=== PATIENT | male | born 1990 | race Caucasian/White ===

== ENCOUNTER 2024-10-16 08:32 | Outpatient (AMB) | payer OTHER, SELFPAY ==
--- NOTE | 2024-10-16 08:52 | MHC.OFFVIS ---
Vital Signs 10/16/24 08:55 Height 6 ft 4 in Weight 460 lb BMI 56.0 Intake Visit Reasons: Right knee pain Intake Note: Suhail is a 34 year old male who presents with complaints of progressively worsening right knee pain. The patient describes his pain as sharp in nature. His pain began approximately 6 months ago. He has failed the last 3 months of conservative treatment which has included physical therapy exercises, a cortisone injection, topical creams, Tylenol and anti-inflammatory medicines. The patient did have a cortisone injection given into his right knee in July of 2024 by his primary care doctor. He got minimal relief from the injection. He denies any locking or giving way. He continues to work doing [employer]. At this point his right knee pain is interfering with his activities of daily living and his ability to sleep well through the night. He wishes to hold off on surgery if at all possible. Allergies No Known Allergies Allergy (Verified 10/16/24 08:55) Medication List - Last Reconciled 10/16/24 by Allen Rudd MD allopurinol mg PO DAILY losartan mg PO DAILY omeprazole mg PO DAILY tirzepatide (weight loss) (Zepbound) mg subcut [facility] Social History (Updated 10/16/24 @ 08:55 by MAGDY Issa) Current occupational status: employed Current occupation: rt hand, [employer] Physical Exam Vital Signs: BMI result Body Mass Index 56.0 Const Other: Well-nourished well-developed very friendly male awake alert and oriented x3 in no acute distress Extrem Other: Bilateral lower extremity examination shows good capillary refill, no skin lesions noted, normal sensation light touch Right knee examination shows a minimal effusion, palpable crepitus with range of motion, pain with range of motion, no instability Assessment & Plan Assessment & Plan (1) Right knee pain: Code(s): M25.561 - Pain in right knee (2) Osteoarthritis of right knee: Code(s): M17.11 - Unilateral primary osteoarthritis, right knee Category: Medical Plan Mr. Lerner presents with right knee pain due to osteoarthritis. I had a lengthy discussion with the patient regarding the treatment options. He wishes to hold off on surgery for as long as possible. I agree with this plan. He has not gotten good relief from cortisone injection therapy. Thus, I will see whether or not his insurance company will cover a viscosupplementation injection such as Durolane. I will see him back once the injection is available. Feel free to call me at any time should questions regarding his orthopedic management arise. Thank you very much for asking me to see this very friendly gentleman. I spent 21 minutes in reviewing the patient's records and imaging studies, seeing the patient and documenting in the medical record. Coding Level of Care Code New Pt Level 3 (05392) Complex EM visit Add On G2211 Diagnoses Right knee pain M25.561 Osteoarthritis of right knee M17.11
[2024-10-16 08:55] VITALS: BMI 56.0
== END 2024-10-16 09:10 | disposition home or self-care (01) ==
PROVIDERS: PCP Internal Medicine; Visit Provider Orthopaedic Surgery
DX: M17.11 Unilateral primary osteoarthritis, right knee (principal)
CPT/HCPCS: 99203; G2211

== ENCOUNTER → 2024-10-16 08:32 | Outpatient (BNVA) | payer OTHER, SELFPAY | PROVIDERS: PCP Internal Medicine; Visit Provider Orthopaedic Surgery | DX: M17.11 Unilateral primary osteoarthritis, right knee (principal) | CPT/HCPCS: 99202 ==

== ENCOUNTER 2024-11-14 07:39 | Outpatient (AMB) | payer OTHER, SELFPAY ==
--- NOTE | 2024-11-14 07:41 | MHC.OFFVIS ---
Vital Signs 11/14/24 07:48 Height 6 ft 4 in Weight 460 lb BMI 56.0 Intake Visit Reasons: Inj-Right knee Euflexxa #1 Intake Note: Suhail is a 34 year old male who presents with complaints of progressively worsening right knee pain. The patient describes his pain as sharp in nature. His pain began approximately 6 months ago. He has failed the last 3 months of conservative treatment which has included physical therapy exercises, a cortisone injection, topical creams, Tylenol and anti-inflammatory medicines. The patient did have a cortisone injection given into his right knee in July of 2024 by his primary care doctor. He got minimal relief from the injection. He denies any locking or giving way. He continues to work doing [employer]. At this point his right knee pain is interfering with his activities of daily living and his ability to sleep well through the night. He wishes to hold off on surgery if at all possible. Allergies No Known Allergies Allergy (Verified 11/14/24 07:49) Medication List - Last Reconciled 11/15/24 by Allen Rudd MD allopurinol mg PO DAILY losartan mg PO DAILY omeprazole mg PO DAILY tirzepatide (weight loss) (Zepbound) mg subcut [facility] Social History (Updated 10/16/24 @ 08:55 by MAGDY Issa) Current occupational status: employed Current occupation: rt hand, [employer] Physical Exam Vital Signs: BMI result Body Mass Index 56.0 Const Other: Well-nourished well-developed very friendly male awake alert and oriented x3 in no acute distress Extrem Other: Right knee examination shows a minimal effusion, palpable crepitus with range of motion, pain with range of motion, no instability Office Procedures AMB Joint Injection/Aspiration Joint Injection/Aspiration Primary Site: right knee Prep: site was prepped using aseptic technique Injected: 20 mg of (Euflexxa viscosupplementation) and 1% plain lidocaine Procedure: The patient tolerated the procedure well Coding 85914 - Large joint Procedure code (CPT) selection complete Results Reviewed Results Reviewed: X-rays of the patient's right knee taken previously show joint space narrowing, subchondral sclerosis, no acute bony abnormalities Assessment & Plan Assessment & Plan (1) Osteoarthritis of right knee: Code(s): M17.11 - Unilateral primary osteoarthritis, right knee Category: Medical Plan Mr. Lerner presents with right knee pain due to osteoarthritis. The risks and benefits of a series of Euflexxa viscosupplementation injections were discussed at length with the patient. The patient wishes to proceed. He tolerated the 1st injection well. He will follow up next week as scheduled. Feel free to call me at any time should questions regarding his orthopedic management arise. I spent 20 minutes in reviewing the patient's records and imaging studies, seeing the patient and documenting in the medical record. Orders: Orders AMB Joint Injection/Aspiration 11/14/24 M17.11 - Unilateral primary osteoarthritis, right knee Coding Level of Care Code Est Pt Level 3 (94654) Complex EM visit Add On G2211 Diagnoses Osteoarthritis of right knee M17.11 CPT Codes Coding - 33429 Large joint: 53264 - Large joint ([id number])
[2024-11-14 07:48] VITALS: BMI 56.0
== END 2024-11-14 07:55 | disposition home or self-care (01) ==
LOC: HO.HOS 07:40
PROVIDERS: PCP Internal Medicine; Visit Provider Orthopaedic Surgery
DX: M17.11 Unilateral primary osteoarthritis, right knee (principal)
CPT/HCPCS: 20610; 99213

== ENCOUNTER → 2024-11-14 07:39 | Outpatient (BNVA) | payer OTHER, SELFPAY | PROVIDERS: PCP Internal Medicine; Visit Provider Orthopaedic Surgery | DX: M17.11 Unilateral primary osteoarthritis, right knee (principal) | CPT/HCPCS: 20610; 99212; J2003; J7323 ==

== ENCOUNTER 2024-11-20 07:30 | Outpatient (AMB) | payer OTHER, SELFPAY ==
--- OUTSIDE RECORDS SUMMARY | 2024-11-20 07:33 | XMS_ITS | Clinical Summary ---
Author Organization [facility] Address [address] [place] [address] Phone Care Team Providers Care Facility Service Associate Name Role Phone Harsh Sharp MD Primary Care Provider Allergies No known active allergies Social History Tobacco Use Types Packs/Day Years Used Date Smoking Tobacco: Never Assessed Education Answer Date Recorded Are you interested in more education? Not on olegario e 12/23/2022 Are you concerned about learning? Not on file 12/23/2022 No 12/23/2022 No 12/23/2022 Digital Access Answer Date Recorded No 01/18/2023 No 01/18/2023 Reliable internet access at home? Not on file 01/18/2023 Device with a working camera? Not on file Intimate Partner Violence Answer Date R ecorded Are you denied basic needs s uch as food, clothing, or medical care? No 12/23/2022 In the past 12 months have y ou been in a relationship with a person who hurts, threatens, or tries to control you? No 12/23/2022 Are you denied basic needs s uch as food, clothing, or medical care? No 12/23/2022 In the past 12 months have y ou been in a relationship with a person who hurts, threatens, or tries to control you? No 12/23/2022 Sex and Gender Information Value Date Recorded Sex Assigned at Not on file Gender Identity Not on file Sexual Orientation Not on file Last Filed Vital Signs Vital Sign Reading Time Taken Comments Blood Pressure 135/67 12/23/2022 5:54 PM EDT Pulse 70 12/23/2022 5:54 PM EDT Temperature 36.6 ??C (97.9 ??F) 12/23/2022 5:54 PM ED T Respiratory Rate 16 12/23/2022 6:26 PM EDT Oxygen Saturation 97% 12/23/2022 5:54 PM EDT Inhaled Oxygen Concentration - - Weight 213.2 kg (470 lb) 12/23/2022 1:04 PM EDT Height 193 cm (6' 4 ) 12/23/2022 1:04 PM EDT Body Mass Index 57.21 12/23/2022 1:04 PM EDT Plan of Treatment Health Maintenance Due Date Last Done Comments LIPID PANEL 1988 DEPRESSION SCREENING 2000 SMOKING Hx and SMOKELESS TOBACCO SCREENING 2001 HEPATITIS C SCREENING 2006 HIV ONE-TIME SCREENING (18-6 5 YEARS) 2006 INFLUENZA VACCINE (#1) 2024 4, 06/21/2013 COVID-19 VACCINE ( - 2023-2 5 season) 2024 SCREENING FOR DIABETES 12/23/2025 12/23/2022 Adult Td,Tdap Booster 01/01/2028 12/31/2017 PNEUMOCOCCAL VACCINES (0-49 years) Aged Out 11/07/2013 No longer eligible b ased on patient's age to complete this topic HEPATITIS A VACCINES Aged Out No long er eligible based on patient's age to complete this topic HIB VACCINES Aged Out No longer eligi ble based on patient's age to complete this topic MENINGOCOCCAL VACCINES (ACWY) Aged Out No longer eligible based on patient's age to complete this topic Medical Devices Not on file Care Teams Facility Service Associate Relationship Specialty Start Date End Date Harsh Sharp MD [address] [place] [address] PCP - General 12/23/22 Additional Source Comments The information contained in this document represents components of the legal health record. It is not the complete legal health record.[facility]
--- OUTSIDE RECORDS SUMMARY | 2024-11-20 07:33 | XMS_ITS | Clinical Summary ---
Author Organization [facility] Address [address] [place] [address] Phone Care Team Providers Care Special Effects Technician Name Role Phone Deshawn Jones MD Primary Care Provider [phone] Encounters Date Type Department Care Team Description 11/06/2024 6:19 PM EDT - 11/06/2024 11:59 PM EDT Hospital Encounter [facility] MRI [address] [place] [address] Radiculopathy, lumbar region Discharge Disposition: Home or Self Care from Last 3 Months Surgical History Surgery Date Site/Laterality Comments OTHER SURGICAL HISTORY PROCEDURE: MD ENDOLYMPHATIC SAC W/O SHUNT Family History Medical History Relation Name Comments Other: gallbladder Mother mother, s ister, grandparents GB removed Relation Name Status Comments Father Alive HTN Mother Alive ASTHMA Sister 1 Alive Sister 2 Alive Social History Tobacco Use Types Packs/Day Years Used Date Smoking Tobacco: Some Days Cigarettes Last attempted to quit: 08/22/2010 Smokeless Tobacco: Never Alcohol Use Standard Drinks/Week Comments Yes 0 (1 standard drink = 0.6 oz pur e alcohol) Sex and Gender Information Value Date Recorded Sex Assigned at Not on file Legal Sex Male 5:00 PM EST Gender Identity Not on file Sexual Orientation Not on file Obstetrics History Plan of Treatment Health Maintenance Due Date Last Done Comments Hepatitis B Vaccines (1 of 3 - 19+ 3-dose series) 2007 Pneumococcal Vaccine: Pediatrics (0 to 5 Years) and At-Risk Patients (6 to 64 Years) (2 of 2 - PCV) 11/07/2014 11/07/2013 COVID-19 Vaccine ( - 2023-2 5 season) 2024 Influenza Vaccine (#1) 2024 4, 06/21/2013 Cholesterol Screening (Lipid Panel) 11/05/2024 Depression Screening 11/05/2024 HIV Screening 11/05/2024 Hepatitis C Screening 11/05/2024 Social Influencers of Health Screening 11/05/2024 DTaP,Tdap,and Td Vaccines (2 - Td or Tdap) 01/01/2028 12/31/2017 HIB Vaccines Aged Out No longer eligi ble based on patient's age to complete this topic HPV Vaccines Aged Out No longer eligi ble based on patient's age to complete this topic Hepatitis A Vaccines Aged Out No long er eligible based on patient's age to complete this topic IPV Vaccines Aged Out No longer eligi ble based on patient's age to complete this topic MMR Vaccines Aged Out No longer eligi ble based on patient's age to complete this topic Meningococcal ACWY Vaccine Aged Out N o longer eligible based on patient's age to complete this topic Meningococcal B Vacine Aged Out No lo nger eligible based on patient's age to complete this topic RSV Immunization Patients Under 20 months Aged Out No longer eligible b ased on patient's age to complete this topic Varicella Vaccines Aged Out No longer eligible based on patient's age to complete this topic Procedures Procedure Name Priority Date/Time Associated Diagnosis Comments MR LUMBAR SPINE WO CONTRAST Routine 11/06/2024 7:01 PM EDT Radiculopathy, lumbar region from Last 3 Months Results * MR Lumbar Spine wo Contrast (11/06/2024 7:01 PM EDT) Anatomical Region Laterality Modality L-spine, Spine Magnetic Resonan ce 11/06/2024 11:3 6 PM EDT Impressions 11/07/2024 8:46 AM EDT Degenerative changes of the lumbar spine as detailed above. -------- FINAL REPORT -------- Dictated By: David Martins Dictated Date: 11/06/2024 23:36 ET Assigned Physician: David Martins Reviewed and Electronically Signed By: David Martins Signed Date: 11/07/2024 08:46 ET Workstation ID: [id number] Transcribed By: Self Edit Transcribed Date: 11/06/2024 23:36 ET Narrative 11/07/2024 8:46 AM EDT PROCEDURE: MRI of the lumbar spine without contrast. TECHNIQUE: Multiplanar multisequence MRI of the lumbar spine without intravenous contrast administration. HISTORY: LUMBAR RADICULOPATHY COMPARISON: CT abdomen and pelvis 06/09/2020. FINDINGS: The paraspinous soft tissues are normal. Normal alignment. ??Small hemangioma in the anterior S1 vertebral body. ??No concerning marrow infiltrative lesion. ??No marrow edema. Normal position of the conus at T12-L1. There is a small broad-based left central protrusion at T12-L1 without mass effect upon the conus. Lumbar disc levels: L1-2: Moderate disc space height loss. ??Small broad-based right central protrusion. ??No spinal or foraminal stenosis. L2-3: No significant disc or facet abnormality. ??No spinal or foraminal stenosis. L3-4: Small symmetric disc bulge with minimal endplate osteophytes. ??Mild bilateral foraminal stenosis. ??Mild degenerative irregularity of the facet joints. ??No spinal stenosis. L4-5: Small symmetric disc osteophyte complex. ??Mild degenerative irregularity of the left facet joint. ??Minimal bilateral foraminal stenosis. ??No spinal stenosis. L5-S1: Minimal degenerative irregularity of the facet joints. ??Small right central focal protrusion which contacts the right S1 nerve in the lateral recess but does not cause impingement. ??Slight widening of the facet joints suggesting mild hypermobility. ??No significant spinal or foraminal stenosis. Procedure Note David Martins MD - 11/07/2024 PROCEDURE: MRI of the lumbar spine without contrast. TECHNIQUE: Multiplanar multisequence MRI of the lumbar spine withoutintravenous contrast administration. HISTORY: LUMBAR RADICULOPATHY COMPARISON: CT abdomen and pelvis 06/09/2020. FINDINGS: The paraspinous soft tissues are normal. Normal alignment. Small hemangioma in the anterior S1 vertebral body. Noconcerning marrow infiltrative lesion. No marrow edema. Normal position of the conus at T12-L1. There is a small broad-based left central protrusion at T12-L1 withoutmass effect upon the conus. Lumbar disc levels: L1-2: Moderate disc space height loss. Small broad-based right centralprotrusion. No spinal or foraminal stenosis. L2-3: No significant disc or facet abnormality. No spinal or foraminalstenosis. L3-4: Small symmetric disc bulge with minimal endplate osteophytes. Mildbilateral foraminal stenosis. Mild degenerative irregularity of the facetjoints. No spinal stenosis. L4-5: Small symmetric disc osteophyte complex. Mild degenerativeirregularity of the left facet joint. Minimal bilateral foraminalstenosis. No spinal stenosis. L5-S1: Minimal degenerative irregularity of the facet joints. Small rightcentral focal protrusion which contacts the right S1 nerve in the lateralrecess but does not cause impingement. Slight widening of the facetjoints suggesting mild hypermobility. No significant spinal or foraminalstenosis. IMPRESSION: Degenerative changes of the lumbar spine as detailed above. -------- FINAL REPORT -------- Dictated By: David Martins Dictated Date: 11/06/2024 23:36 ET Assigned Physician: David Martins Reviewed and Electronically Signed By: David Martins Signed Date: 11/07/2024 08:46 ET Workstation ID: [id number] Transcribed By: Self Edit Transcribed Date: 11/06/2024 23:36 ET us Harsh Domínguez MD IMG MRI PROCEDURES Final Resul t from Last 3 Months Care Teams Special Effects Technician Relationship Specialty Start Date End Date Deshawn Jones MD PCP - General 04/15/08
--- OUTSIDE RECORDS SUMMARY | 2024-11-20 07:33 | XMS_ITS | Encounter Summary ---
Author Organization [facility] Address [address] [place] [address] Phone Care Team Providers Care Hand Packer/Packager Name Role Phone Harsh Sharp MD Primary Care Provider Encounter Details Date Type Department Care Team ([facility] st Contact Info) Description 12/23/2022 Procedure Pass [facility], Ct Scan - [address] [address] Social History Tobacco Use Types Packs/Day Years Used Date Smoking Tobacco: Never Assessed Education Answer Date Recorded Are you interested in more education? Not on olegario e 12/23/2022 Are you concerned about learning? Not on file 12/23/2022 No 12/23/2022 No 12/23/2022 Intimate Partner Violence Answer Date R ecorded [...] on file Sexual Orientation Not on file documented as of this encounter Plan of Treatment Not on file documented as of this encounter Visit Diagnoses Not on filedocumented in this encounter Care Teams Hand Packer/Packager Relationship Specialty Start Date End Date Harsh Sharp MD [address] [address] PCP - General 12/23/22 documented as of this encounter Additional Source Comments The information contained in this document represents components of the legal health record. It is not the complete legal health record.[facility]
--- NOTE | 2024-11-20 07:43 | A.OFFVIS_ITS ---
Vital Signs 11/20/24 07:44 Height 64 ft Weight 460 lb BMI 0.5 Intake Visit Reasons: Inj-Right knee Euflexxa #2 Intake Note: Suhail is a 34 year old male who presents today for a second dose of Euflexxa gel injection on the right knee. He states that he has gotten mild relief from the 1st injection. He denies any fevers or chills. Allergies No Known Allergies Allergy (Verified 11/20/24 07:49) Medication List - Last Reconciled 11/20/24 by Allen Rudd MD allopurinol mg PO DAILY losartan mg PO DAILY omeprazole mg PO DAILY tirzepatide (weight loss) (Zepbound) mg subcut [facility] Social History (Updated 10/16/24 @ 08:55 by MAGDY Issa) Current occupational status: employed Current occupation: rt hand, [employer] Physical Exam Vital Signs: BMI result Body Mass Index 0.5 Extrem Other: Right knee examination shows a minimal effusion, palpable crepitus with range of motion, pain with range of motion, no instability Office Procedures AMB Joint Injection/Aspiration Joint Injection/Aspiration Primary Site: right knee Prep: site was prepped using aseptic technique Injected: 20 mg of (Euflexxa viscosupplementation) and 1% plain lidocaine Procedure: The patient tolerated the procedure well Coding - Large joint Procedure code (CPT) selection complete Results Reviewed Results Reviewed: X-rays of the patient's right knee show joint space narrowing, subchondral sclerosis, no acute bony abnormalities Assessment & Plan Assessment & Plan (1) Osteoarthritis of right knee: Code(s): M17.11 - Unilateral primary osteoarthritis, right knee Category: Medical Plan Mr. Lerner presents with right knee pain due to osteoarthritis. The risks and benefits of a 2nd Euflexxa viscosupplementation injection were discussed at length with the patient. The patient wished to proceed. He tolerated the injection well. He will continue with his home exercise program. He will follow up as scheduled next week. Feel free to call me at any time should questions regarding his orthopedic management arise. Orders: Orders AMB Joint Injection/Aspiration Today M17.11 - Unilateral primary osteoarthritis, right knee Coding Level of Care Code Procedure Only Diagnoses Osteoarthritis of right knee M17.11 CPT Codes Coding - 37246 Large joint: 53409 - Large joint ([id number])
== END 2024-11-20 08:01 | disposition home or self-care (01) ==
LOC: HO.HOS 07:31
PROVIDERS: PCP Internal Medicine; Visit Provider Orthopaedic Surgery
DX: M17.11 Unilateral primary osteoarthritis, right knee (principal)
CPT/HCPCS: 20610

== ENCOUNTER → 2024-11-20 07:30 | Outpatient (BNVA) | payer OTHER, SELFPAY | PROVIDERS: PCP Internal Medicine; Visit Provider Orthopaedic Surgery | DX: M17.11 Unilateral primary osteoarthritis, right knee (principal) | CPT/HCPCS: 20610; J2003; J7323 ==

== ENCOUNTER 2024-11-27 07:51 | Outpatient (AMB) | payer OTHER, SELFPAY ==
--- OUTSIDE RECORDS SUMMARY | 2024-11-27 07:55 | XMS_ITS | Clinical Summary ---
Author Organization [facility] Address [address] [place] [address] Phone Care Team Providers Care Director Of Sales Marketing Name Role Phone Harsh Sharp MD Primary [...] Medical Devices Not on file Care Teams Director Of Sales Marketing Relationship Specialty Start Date End Date Harsh Sharp MD [address] [place] [address] PCP - General 12/23/22 Additional Source Comments The information contained in this document represents components of the legal health record. It is not the complete legal health record.[facility]
--- OUTSIDE RECORDS SUMMARY | 2024-11-27 07:55 | XMS_ITS | Encounter Summary ---
Author Organization [facility] Address [address] [facility] [address] [place] [address] Phone Care Team Providers Care Car Spotter Name Role Phone Harsh Sharp MD Primary Care Provider Encounter Details Date Type Department Care Team ([facility] st Contact Info) Description 12/23/2022 Procedure Pass [facility], Ct Scan - [address] [address] Social History Tobacco Use Types Packs/Day Years [...] on filedocumented in this encounter Care Teams Car Spotter Relationship Specialty Start Date End Date Harsh Sharp MD [address] [address] PCP - General 12/23/22 documented as of this encounter Additional Source Comments The information contained in this document represents components of the legal health record. It is not the complete legal health record.[facility]
--- OUTSIDE RECORDS SUMMARY | 2024-11-27 07:55 | XMS_ITS | Encounter Summary ---
Author Organization [facility] Address [address] [facility] [address] [place] [address] Phone Care Team Providers Care Head Waiter Name Role Phone Harsh Sharp MD Primary Care Provider Encounter Details Date Type Department Care Team ([facility] st Contact Info) Description 12/23/2022 Procedure Pass [facility], Ct Scan - [address] [address] Social History Tobacco Use Types Packs/Day Years [...] on filedocumented in this encounter Care Teams Head Waiter Relationship Specialty Start Date End Date Harsh Sharp MD [address] [address] PCP - General 12/23/22 documented as of this encounter Additional Source Comments The information contained in this document represents components of the legal health record. It is not the complete legal health record.[facility]
--- OUTSIDE RECORDS SUMMARY | 2024-11-27 07:56 | XMS_ITS | Clinical Summary ---
Author Organization [facility] Address [address] [place] [address] Phone Care Team Providers Care Spray Painting Machine Operator Name Role Phone Deshawn Jones MD Primary Care Provider [phone] Encounters Date Type Department Care Team Description 11/06/2024 6:19 PM EDT - 11/06/2024 11:59 PM EDT Hospital Encounter [facility] MRI [address] [place] [address] Radiculopathy, lumbar region Discharge Disposition: Home or Self Care from Last 3 Months Surgical History Surgery Date Site/Laterality Comments OTHER SURGICAL HISTORY PROCEDURE: [place] ENDOLYMPHATIC SAC W/O SHUNT Family History Medical [...] age to complete this topic Meningococcal B Vaccine Aged Out No l onger eligible based on patient's age to complete [...] Signed Date: 11/07/2024 08:46 ET Workstation ID: [id number] Transcribed By: Self Edit Transcribed Date: 11/06/2024 [...] Signed Date: 11/07/2024 08:46 ET Workstation ID: [id number] Transcribed By: Self Edit Transcribed Date: 11/06/2024 23:36 ET us Harsh Domínguez MD IMG MRI PROCEDURES Final Resul t from Last 3 Months Care Teams Spray Painting Machine Operator Relationship Specialty Start Date End Date Deshawn Jones MD PCP - General 04/15/08
[2024-11-27 08:00] VITALS: BMI 56.0
--- NOTE | 2024-11-27 08:00 | MHC.OFFVIS ---
Vital Signs 11/27/24 08:00 Height 6 ft 4 in Weight 460 lb BMI 56.0 Intake Visit Reasons: Inj-Right knee Euflexxa #3 Intake Note: Suhail is a 34 year old male who presents today for a third dose of Euflexxa gel injection on the right knee. Patient states that he has gotten - relief from the second dose. Allergies No Known Allergies Allergy (Verified 11/27/24 08:00) Medication List - Last Reconciled 11/27/24 by Allen Rudd MD allopurinol mg PO DAILY losartan mg PO DAILY omeprazole mg PO DAILY tirzepatide (weight loss) (Zepbound) mg subcut PFSH Social History (Updated 10/16/24 @ 08:55 by MAGDY Issa) Current occupational status: employed Current occupation: rt hand, HVAC Assessment & Plan Assessment & Plan Orders: Orders AMB Joint Injection/Aspiration Today M17.11 - Unilateral primary osteoarthritis, right knee Coding
--- NOTE | 2024-11-27 08:04 | MHC.OFFVIS ---
Vital Signs 11/27/24 08:00 Height 6 ft 4 in Weight 460 lb BMI 56.0 Intake Visit Reasons: Inj-Right knee Euflexxa #3 Intake Note: Suhail presents with complaints of intermittent right knee pain. He states that he has gotten mild relief from the 1st 2 Euflexxa injections. He continues with his home exercise program in his weight loss program. Allergies No Known Allergies Allergy (Verified 11/27/24 08:00) Medication List - Last Reconciled 11/27/24 by Allen Rudd MD allopurinol mg PO DAILY losartan mg PO DAILY omeprazole mg PO DAILY tirzepatide (weight loss) (Zepbound) mg subcut PFSH Social History (Updated 10/16/24 @ 08:55 by MAGDY Issa) Current occupational status: employed Current occupation: rt hand, HVAC Physical Exam Vital Signs: BMI result Body Mass Index 56.0 Extrem Other: Right knee examination shows a minimal effusion, mild crepitus with range of motion, no instability Office Procedures AMB Joint Injection/Aspiration Joint Injection/Aspiration Primary Site: right knee Prep: site was prepped using aseptic technique Injected: 20 mg of (Euflexxa viscosupplementation) and 1% plain lidocaine Procedure: The patient tolerated the procedure well Coding - Large joint Procedure code (CPT) selection complete Results Reviewed Results Reviewed: X-rays of the patient's right knee taken previously show joint space narrowing, subchondral sclerosis, no acute bony abnormalities Assessment & Plan Assessment & Plan (1) Osteoarthritis of right knee: Code(s): M17.11 - Unilateral primary osteoarthritis, right knee Category: Medical Plan Suhail presents with right knee pain due to osteoarthritis. The risks and benefits of a 3rd Euflexxa injection were discussed at length with the patient. The patient wished to proceed. He tolerated the injection well. He will continue with his home exercise program. Will follow up with me on an as-needed basis should his symptoms not plateau at an unacceptable level over the next few months. Feel free to call me at any time should questions regarding his orthopedic management arise. Orders: Orders AMB Joint Injection/Aspiration Today M17.11 - Unilateral primary osteoarthritis, right knee Coding Level of Care Code Procedure Only Diagnoses Osteoarthritis of right knee M17.11 CPT Codes Coding - 02738 Large joint: 04754 - Large joint ([id number])
== END 2024-11-27 08:05 | disposition home or self-care (01) ==
LOC: HO.HOS 07:51
PROVIDERS: PCP Internal Medicine; Visit Provider Orthopaedic Surgery
DX: M17.11 Unilateral primary osteoarthritis, right knee (principal)
CPT/HCPCS: 20610

== ENCOUNTER → 2024-11-27 07:51 | Outpatient (BNVA) | payer OTHER, SELFPAY | PROVIDERS: PCP Internal Medicine; Visit Provider Orthopaedic Surgery | DX: M17.11 Unilateral primary osteoarthritis, right knee (principal) | CPT/HCPCS: 20610; J2003; J7323 ==

== ENCOUNTER 2024-12-29 07:04 | Outpatient (REF) | payer OTHER, SELFPAY ==
--- NOTE | ~2024-12-29 | XR_ITS ---
EXAMINATION: XR KNEE, RIGHT CLINICAL INFORMATION: RIGHT MEDIAL KNEE PAIN COMPARISON: None available. TECHNIQUE: Four views of the right knee. FINDINGS: No fracture, dislocation, or suspicious bone lesion. There is normal bony mineralization. There is normal alignment. Moderate medial and patellofemoral compartment osteoarthrosis with marginal osteophytic spurring and mild to moderate joint space narrowing. There is relative preservation of the lateral compartment. No significant patellar tilt. There are prominent marginal patellar, femoral trochlear, and medially projecting osteophytes. There is superior patellar enthesopathy. There is a moderate sized suprapatellar joint effusion. The soft tissues appear normal. XR/XR knee RT 3V IMPRESSION: 1. No acute bony abnormalities. 2. Moderate osteoarthrosis in the medial and patellofemoral compartments. 3. Moderate size joint effusion. Electronically signed by: Ernesto Root MD 12/31/2024 08:11 AM EDT
== END 2024-12-29 07:05 | disposition home or self-care (01) ==
LOC: HO.XRAY 07:04
PROVIDERS: PCP Internal Medicine; Visit Provider Internal Medicine
DX: M25.561 Pain in right knee (principal)
CPT/HCPCS: 73562

== ENCOUNTER → 2024-12-29 07:20 | Outpatient (BNV) | payer OTHER, SELFPAY | PROVIDERS: Visit Provider Radiology Diagnostic Radiology | DX: M17.11 Unilateral primary osteoarthritis, right knee (principal); M25.461 Effusion, right knee | CPT/HCPCS: 73562 ==

== ENCOUNTER → 2025-01-05 19:13 | Outpatient (BNV) | payer OTHER, SELFPAY | PROVIDERS: PCP Internal Medicine; Visit Provider Radiology Diagnostic Radiology | DX: M17.11 Unilateral primary osteoarthritis, right knee (principal) | CPT/HCPCS: 73721 ==

== ENCOUNTER 2025-01-05 19:14 | Outpatient (REF) | payer OTHER, SELFPAY ==
--- NOTE | ~2025-01-05 | MR_ITS ---
CLINICAL HISTORY: S83.241A - Other tear of medial meniscus, current injury, right knee, in... MR right knee without gadolinium Comparison: None Findings: No acute fracture. There is kissing edema at the medial most margin of the weight-bearing medial femoral condyle and medial tibial plateau. There are marginal osteophytes involving all 3 joint compartments. Moderate-sized simple joint effusion. Cruciate and collateral ligaments are intact. Patellar retinacula and iliotibial band are intact. No tears of the quadriceps, patellar, popliteus, or flexor tendons. Lateral meniscus is normal. There is partial extrusion of the medial meniscus with some increased degenerative signal within the midbody. In the patellofemoral compartment there is areas of partial-thickness and full-thickness fissuring of the cartilage at the patellar apex, as well as areas of partial-thickness loss of the femoral trochlea articular cartilage. Lateral joint compartment articular cartilage is intact with only a small area of increased signal within the femoral weight-bearing articular cartilage. Medial joint compartment demonstrates a area of the weight-bearing left femoral condyle with full-thickness loss measuring 7 mm in transverse dimensions, series 19, image 25. There are areas of increased signal within the medial tibial plateau articular cartilage. IMPRESSION: 1. Tricompartmental osteoarthritis most significantly involving the medial joint compartment, with focal area of full-thickness articular cartilage loss, kissing contusions of the weight-bearing femoral condyle and tibial plateau medially as well as partial extrusion of the medial meniscus. 2. Moderate-sized joint effusion. This document has been electronically signed by: Jose Wren MD on 01/05/2025 21:12:07
== END 2025-01-05 19:15 | disposition home or self-care (01) ==
LOC: HO.MRI 19:14
PROVIDERS: PCP Internal Medicine; Visit Provider Orthopaedic Surgery
DX: S83.241A Other tear of medial meniscus, current injury, right knee, initial encounter (principal)
CPT/HCPCS: 73721

== ENCOUNTER 2025-01-08 07:37 | Outpatient (AMB) | payer OTHER, SELFPAY ==
--- NOTE | 2025-01-08 07:38 | MHC.OFFVIS ---
Intake Visit Reasons: OV-RT knee MRI review Intake Note: Suhail is a 34 year old male who presents today for a Right Knee MRI review. He reports continued pain and ?popping? in his right knee. He continues with his weight loss program. He has lost approximately 75 lb. His current weight is approximately 450 lb. He has had both cortisone injections and Euflexxa viscosupplementation injections which gave him minimal relief. Allergies No Known Allergies Allergy (Verified 01/08/25 07:39) Medication List - Last Reconciled 01/08/25 by Allen Rudd MD allopurinol mg PO DAILY losartan mg PO DAILY omeprazole mg PO DAILY tirzepatide (weight loss) (Zepbound) mg subcut PFSH Social History Current occupational status: employed Current occupation: rt hand, HV[employer] Physical Exam Extrem Other: Right knee examination shows a minimal effusion, mild crepitus with range of motion, negative Michael's test, no instability Results Reviewed Results Reviewed: MRI of the patient's right knee shows no evidence of meniscus or ligamentous tearing, mild to moderate degenerative changes most significant in the patellofemoral joint Assessment & Plan Assessment & Plan (1) Right knee pain: Code(s): M25.561 - Pain in right knee Category: Medical Plan Mr. Lerner presents with right knee pain due to early degenerative joint disease most likely due to his obesity. At this point his BMI does remain greater than 50. I had a lengthy discussion with the patient regarding the treatment options. At this point I do not feel that any type of surgical intervention would benefit him. He has not gotten good relief from either cortisone injections or viscosupplementation injections. He is encouraged to continue with his weight loss program. I did discuss with the patient's getting a 2nd opinion from another orthopedic group. I have no problem with this. The patient will follow up with me on an as-needed basis. Feel free to call me at any time should questions regarding his orthopedic management arise. I spent 20 minutes in reviewing the patient's records and imaging studies, seeing the patient and documenting in the medical record. Coding Level of Care Code Est Pt Level 3 (65063) Complex EM visit Add On G2211 Diagnoses Right knee pain M25.561
--- OUTSIDE RECORDS SUMMARY | 2025-01-08 07:41 | XMS_ITS | Clinical Summary ---
Author Organization [facility] Address [address] [place] [phone] Phone Care Team Providers Care Water Treatment Technician Name Role Phone Harsh Sharp MD Primary [...] at Not on file Legal Sex Male 12:49 PM EDT Gender Identity Not on file Sexual Orientation [...] DEPRESSION SCREENING 2000 SMOKING Hx and SMOKELESS TOB ACCO SCREENING 2001 HEPATITIS C SCREENING 2006 HIV ONE-TIME SCREENING (18-6 5 YEARS) 2006 COVID-19 VACCINE (2023-2 5 season) 2024 SCREENING FOR DIABETES 12/23/2025 12/23/2022 Adult Td,Tdap Booster 01/01/2028 12/31/2017 PNEUMOCOCCAL VACCINES (0-49 years) Aged Out 2013 No longer eligible based on patient's age to complete this topic HEPATITIS A VACCINES Aged Out No long er eligible based on patient's age to complete this topic HIB VACCINES Aged Out No longer eligi ble based on patient's age to complete this topic MENINGOCOCCAL VACCINES (ACWY) Aged Out No longer eligible based on patient's age to complete this topic MENINGOCOCCAL VACCINES (B) Aged Out N o longer eligible based on patient's age to complete this topic Medical Devices Not on file Insurance [facility] NON [facility] PCP [employer] [facility] NON [facility] PCP [employer] [employer] [facility]CP [employer] NON NSPG PCP [employer] [facility] NON [facility] PCP [employer] Care Teams Water Treatment Technician Relationship Specialty Start Date End Date Harsh Sharp MD [address] [place] [id number] PCP - General 12/23/22 Additional Source Comments The information contained in this document represents components of the legal health record. It is not the complete legal health record.[facility]
--- OUTSIDE RECORDS SUMMARY | 2025-01-08 07:41 | XMS_ITS | Encounter Summary ---
Author Organization [facility] Address [address] [place] [address] Phone Care Team Providers Care Drafter Geological Name Role Phone Harsh Sharp MD Primary Care Provider Encounter Details Date Type Department Care Team (Late st Contact Info) Description 12/23/2022 Procedure Pass [facility], Ct Scan - [address] [address] Social History Tobacco Use Types Packs/Day Years [...] on file documented as of this encounter Functional Status * Calculated C-SSRS Risk Score (Lifetime/Recent) Answer Date of Assessment Author No Risk Indicated 12/23/2022 1:23 PM EDNedra Marina RN * [place] Suicide Severity Rating Scale (Screener/Recent Self-Report) Question Answer Date of Assessment Author 1. Wish to be (Past 1 Month) No 023 1:23 PM Nedra Portillo RN 2. Non-Specific Active Suici jean Thoughts (Past 1 Month) No 12/23/2022 1:23 PM Nedra Portillo RN 6. Suicidal Behavior (Lifetime) No 3 1:23 PM EDNedra Marina RN documented as of this encounter Plan of Treatment Not on file documented as of this encounter Visit Diagnoses Not on filedocumented in this encounter Care Teams Drafter Geological Relationship Specialty Start Date End Date Harsh Sharp MD [address] [place] [address] PCP - General 12/23/22 documented as of this encounter Additional Source Comments The information contained in this document represents components of the legal health record. It is not the complete legal health record.[facility]
--- OUTSIDE RECORDS SUMMARY | 2025-01-08 07:41 | XMS_ITS | Encounter Summary ---
Author Organization [facility] Address [address] [place] [address] Phone Care Team Providers Care Sweetbread Trimmer Name Role Phone Harsh Sharp MD Primary Care Provider Encounter Details Date Type Department Care Team (Late st Contact Info) Description 12/23/2022 Procedure Pass [facility], Ct Scan - [address] [address] Social History Tobacco Use Types Packs/Day Years [...] 12/23/2022 1:23 PM EDNedra Marina RN * [place] Suicide Severity Rating Scale (Screener/Recent Self-Report) Question [...] on filedocumented in this encounter Care Teams Sweetbread Trimmer Relationship Specialty Start Date End Date Harsh Sharp MD [address] [place] [address] PCP - General 12/23/22 documented as of this encounter Additional Source Comments The information contained in this document represents components of the legal health record. It is not the complete legal health record.[facility]
--- OUTSIDE RECORDS SUMMARY | 2025-01-08 07:41 | XMS_ITS | Clinical Summary ---
Author Organization [facility] Address [address] [place] [address] Phone Care Team Providers Care Mine Motor Engineer Name Role Phone Deshawn Jones MD Primary Care Provider [phone] Encounters Date Type Department Care Team Description 11/06/2024 6:19 PM EDT - 11/06/2024 11:59 PM EDT Hospital Encounter MRI [address] [place] [address] Radiculopathy, lumbar region Discharge Disposition: Home or Self Care from Last 3 Months Surgical History Surgery Date Site/Laterality Comments OTHER SURGICAL HISTORY PROCEDURE: ID ENDOLYMPHATIC SAC W/O SHUNT Family History Medical [...] Vaccine ( - 2023-2 5 season) 2024 Cholesterol Screening (Lipid Panel) 11/05/2024 Depression Screening 11/05/2024 HIV Screening 11/05/2024 Hepatitis C Screening 11/05/2024 Social Influencers of Health Screening 11/05/2024 Influenza Vaccine (Season Ended) 2025 07/19/2014, 06/21/2013 DTaP,Tdap,and Td Vaccines (2 - Td or [...] Signed Date: 11/07/2024 08:46 ET Workstation ID: [id number] Transcribed By: Self Edit Transcribed Date: 11/06/2024 [...] Signed Date: 11/07/2024 08:46 ET Workstation ID: [id number] Transcribed By: Self Edit Transcribed Date: 11/06/2024 23:36 ET us Harsh Domínguez MD IMG MRI PROCEDURES Final Resul t from Last 3 Months Care Teams Mine Motor Engineer Relationship Specialty Start Date End Date Deshawn Jones MD PCP - General 04/15/08
== END 2025-01-08 07:53 | disposition home or self-care (01) ==
LOC: HO.HOS 07:38
PROVIDERS: PCP Internal Medicine; Visit Provider Orthopaedic Surgery
DX: M25.561 Pain in right knee (principal)
CPT/HCPCS: 99213; G2211

== ENCOUNTER → 2025-01-08 07:37 | Outpatient (BNVA) | payer OTHER, SELFPAY | PROVIDERS: PCP Internal Medicine; Visit Provider Orthopaedic Surgery | DX: M25.561 Pain in right knee (principal) | CPT/HCPCS: 99212 ==